=== PATIENT | male | born 1990 | race African-American/Black ===

== ENCOUNTER 2023-02-09 20:35 | Observation (INO) ==
[2023-02-09 21:27] LABS: Basophils # (auto) 0.02 K/uL (0.00-0.20); Basophils % (auto) 0.2 %; Eosinophils % (auto) 1.1 %; Hemoglobin 14.6 g/dl (14.0-18.0); Immature Granulocytes # (auto) 0.03 K/uL (0.01-0.20); Immature Granulocytes % (auto) 0.3 %; Lymphocytes # (auto) 1.47 K/uL (1.20-3.40); Lymphocytes % (auto) 15.6 %; Mean Corpuscular Hemoglobin 31.1 pg (25.0-34.0); Mean Corpuscular Hgb Conc 34.8 g/dL (32.0-36.0); Mean Corpuscular Volume 89.6 fL (80.0-100.0); Mean Platelet Volume 11.4 fL (9.4-12.4); Monocytes # (auto) 1.16 K/uL (0.11-0.59); Monocytes % (auto) 12.3 %; Neutrophils # (auto) 6.62 K/uL (1.40-6.50); Neutrophils % (auto) 70.5 %; Platelet Count 231 K/uL (130-400); RDW Coefficient of Variation 12.8 % (11.5-14.5); RDW Standard Deviation 41.9 fL (36.4-46.3); Red Blood Count 4.69 M/uL (4.70-6.10)
--- NOTE | 2023-02-09 21:38 | Emergency Department Note ---
Impression & Plan Heart palpitations, Non-ST elevation [place] (NSTEMI) ED Provider Note HISTORY OF PRESENT ILLNESS: Patient is a 33-year-old male presenting with palpitations and headache. Patient is at the [facility] when he stated he felt like he was having posterior neck pain and a headache. He was seen yesterday and had an elevated troponin at that time and signed out AGAINST MEDICAL ADVICE. He reports he has been having palpitations for the last 2 days. Denies any chest pain or sig nificant shortness of breath. He was given 324 mg of aspirin and [address] way here. Denies any history of family cardiac disease. Denies any changes in vision, numbness or tingling or weakness in his extremities ROS: as above PHYSICAL EXAM: Constitutional: Patient appears in no acute distress. HENT: Head: Normocephalic and atraumatic. Eyes: EOMI, PERRL Mouth/Throat: Mucous membranes moist. Neck: Trachea midline. Neck supple. Cardiovascular: RRR, No murmurs, rubs or gallops. Intact distal pulses. Pulmonary/Chest: No respiratory distress. Breath sounds clear and equal bilaterally. No wheezes or rales. Abdominal: Abdomen soft, no tenderness, rebound or guarding. Musculoskeletal: No edema, tenderness or deformity noted. Skin: Warm and dry. No rash, erythema, pallor or cyanosis Psychiatric: Appropriate mood and affect for situation. Neurological: Alert and keenly responsive. CN II-XII grossly intact, moving all extremities equally and fully. MDM: - Vitals signs showed hypertension - History obtained via patient. Patient presents with palpitations and headache. Patient reports has been having pain in his posterior neck and a headache for the last 48 hours. He was seen yesterday and had elevated troponins but signed out AGAINST MEDICAL ADVICE. He reports having palpitations for the last 2 days. Denies any DVT or PE history. Denies any numbness or tingling or weakness in his extremities. - Chronic conditions affecting care: None - Differential diagnoses include, but are not limited to: Acute coronary syndrome; pulmonary embolism; dissection; tension pneumothorax; esophageal rupture; pneumonia - Order placed for continuous cardiac monitoring. At this time, monitor showed rate of 75 bpm with normal sinus rhythm, per my interpretation. - External medical records reviewed. EKG from yesterday was reviewed. Patient was noted to be normal sinus rhythm with a rate of 84 bpm. He was noted to have some T wave inversions in leads I and II with some slight ST elevations in V1 and V2. Patient's EKG from today does appear to have more pronounced depres sions in leads I and II. - EKG reviewed by myself showed normal sinus rhythm. Rate 80 bpm. QTc 484. No acute ischemic changes, but the patient is noted to have more profound depressions in leads II and I. - Patient was given aspirin prehospital. - Laboratory workup interpreted by myself showed normal WBC; hypokalemia (K 3.1); elevated troponin (130.6); normal lipase; elevated dimer (610) - CXR negative for pneumonia, per my interpretation. - CT PE ordered. - Repeat troponin rising at 150. - Discussion was had with healthcare social worker about patient's case and need for admission - Hospitalist consulted for admission - Patient [facility] for further evaluation and management. ASSESSMENT AND PLAN: Diagnosis: Palpitations; NSTEMI Plan: admit Past Med/Surg History Social History Smoking Status: Unknown if ever smoked Feels Safe at Home: Yes Allergies Allergies Allergy/AdvReac Type Severity Reaction Status Date / Time No Known Allergies Allergy Unverified 02/08/23 14:50 Home Meds Home Medications Medication Instructions Recorded Confirmed No Known Home Medications 02/08/23 02/09/23 Results & Data (ED) Vital Signs Vital Signs - 24 hr 02/09/23 20:52 02/09/23 20:52 02/09/23 21:04 Temperature 37.1 C 37.1 C Temperature Source Oral Oral Pulse Rate 78 Pulse Rate [Apical] 78 Pulse Rate from SpO2 Sensor Respiratory Rate 18 18 Respiratory Effort / Characteristics Non-Labored Spontaneous Non-Labored Spontaneous Respiratory Depth Normal Normal Blood Pressure 168/108 H Blood Pressure [Right Arm] 168/108 H Blood Pressure Mean 128 Blood Pressure Mean [Right Arm] 128 Blood Pressure Position Lying Pulse Oximetry 97 97 98 Oxygen Delivery Method Room Air Room Air Room Air Sepsis Recent Fever Within 48 Hours No Sepsis New/Unexplained Change in Mental Status N/A Sepsis Action Taken by Nursing No Action Required 02/09/23 21:04 02/09/23 22:15 02/09/23 22:52 Temperature Temperature Source Pulse Rate 78 63 Pulse Rate [Apical] Pulse Rate from SpO2 Sensor Respiratory Rate 18 Respiratory Effort / Characteristics Respiratory Depth Normal Blood Pressure Blood Pressure [Right Arm] Blood Pressure Mean Blood Pressure Mean [Right Arm] Blood Pressure Position Pulse Oximetry 98 Oxygen Delivery Method Room Air Sepsis Recent Fever Within 48 Hours Sepsis New/Unexplained Change in Mental Status Sepsis Action Taken by Nursing 02/09/23 22:15 02/09/23 22:58 02/09/23 23:00 Temperature Temperature Source Pulse Rate 74 68 77 Pulse Rate [Apical] Pulse Rate from SpO2 Sensor 70 67 77 Respiratory Rate 15 10 L 16 Respiratory Effort / Characteristics Respiratory Depth Blood Pressure Blood Pressure [Right Arm] Blood Pressure Mean Blood Pressure Mean [Right Arm] Blood Pressure Position Pulse Oximetry 93 98 99 Oxygen Delivery Method Sepsis Recent Fever Within 48 Hours Sepsis New/Unexplained Change in Mental Status Sepsis Action Taken by Nursing 02/09/23 23:07 02/09/23 23:07 02/09/23 23:30 Temperature Temperature Source Pulse Rate 75 75 Pulse Rate [Apical] Pulse Rate from SpO2 Sensor 75 72 Respiratory Rate 19 14 Respiratory Effort / Characteristics Respiratory Depth Blood Pressure 171/114 H Blood Pressure [Right Arm] Blood Pressure Mean 129 Blood Pressure Mean [Right Arm] Blood Pressure Position Pulse Oximetry 98 98 Oxygen Delivery Method Sepsis Recent Fever Within 48 Hours Sepsis New/Unexplained Change in Mental Status Sepsis Action Taken by Nursing 02/09/23 23:31 02/09/23 23:31 02/10/23 00:00 Temperature Temperature Source Pulse Rate 76 75 Pulse Rate [Apical] Pulse Rate from SpO2 Sensor 79 Respiratory Rate 21 16 Respiratory Effort / Characteristics Respiratory Depth Blood Pressure 147/102 H 163/109 H Blood Pressure [Right Arm] Blood Pressure Mean 131 127 Blood Pressure Mean [Right Arm] Blood Pressure Position Pulse Oximetry 99 98 Oxygen Delivery Method Sepsis Recent Fever Within 48 Hours Sepsis New/Unexplained Change in Mental Status Sepsis Action Taken by Nursing Laboratory Data 02/09/23 20:45 02/09/23 20:45 Lab Results 02/09/23 02/09/23 02/09/23 Range/Units 20:45 20:45 20:45 WBC 9.40 (4.8-10.8) K/ul RBC 4.69 L (4.70-6.10) M/uL Hgb 14.6 (14.0-18.0) g/dl Hct 42.0 (42.0-52.0) % MCV 89.6 (80.0-100.0) fL MCH 31.1 (25.0-34.0) pg MCHC 34.8 (32.0-36.0) g/dL RDW Std Deviation 41.9 (36.4-46.3) fL RDW Coeff of Victorino 12.8 (11.5-14.5) % Plt Count 231 (130-400) K/uL MPV 11.4 (9.4-12.4) fL Immature Gran % (Auto) 0.3 % Neut % (Auto) 70.5 % Lymph % (Auto) 15.6 % Hand % (Auto) 12.3 % Eos % (Auto) 1.1 % Baso % (Auto) 0.2 % Neut # (Auto) 6.62 H (1.40-6.50) K/uL Lymph # (Auto) 1.47 (1.20-3.40) K/uL Hand # (Auto) 1.16 H (0.11-0.59) K/uL Eos # (Auto) 0.10 (0.00-0.50) K/uL Baso # (Auto) 0.02 (0.00-0.20) K/uL Immature Gran # (Auto) 0.03 (0.01-0.20) K/uL PT 10.9 (9.0-12.0) Seconds INR 1.0 (0.9-1.1) D-Dimer 610 H* (0-500) ug/L FEU Sodium 140 (136-145) mmol/L Potassium 3.1 L (3.5-5.1) mmol/L Chloride 102 (98-107) mmol/L Carbon Dioxide 31 (21-32) mmol/L Anion Gap 7 (3-11) BUN 17 (6-23) mg/dl Creatinine 1.29 (0.6-1.4) mg/dl Est Cr Clr Drug Dosing 100.5 ml/min Est GFR ( Amer) 83.3 ml/min Est GFR (Non-Af Amer) 71.9 ml/min BUN/Creatinine Ratio 13.2 (10-20) Glucose 96 (70-99(Fasting)) mg/dl Calcium 10.2 (8.6-10.3) mg/dl Total Bilirubin 0.9 (0.2-1.0) mg/dl AST 40 H (13-39) U/L ALT 25 (7-52) U/L Alkaline Phosphatase 76 (34-104) U/L Troponin I High Sens 130.6 H* (0-20) pg/ml Total Protein 8.5 H (6.0-8.3) gm/dl Albumin 4.5 (3.4-5.0) gm/dl Globulin 4.0 (2.5-4.0) gm/dl Albumin/Globulin Ratio 1.1 (0.9-2) Lipase 20 (11-82) U/L 02/09/23 Range/Units 23:14 WBC (4.8-10.8) K/ul RBC (4.70-6.10) M/uL Hgb (14.0-18.0) g/dl Hct (42.0-52.0) % MCV (80.0-100.0) fL MCH (25.0-34.0) pg MCHC (32.0-36.0) g/dL RDW Std Deviation (36.4-46.3) fL RDW Coeff of Victorino (11.5-14.5) % Plt Count (130-400) K/uL MPV (9.4-12.4) fL Immature Gran % (Auto) % Neut % (Auto) % Lymph % (Auto) % Hand % (Auto) % Eos % (Auto) % Baso % (Auto) % Neut # (Auto) (1.40-6.50) K/uL Lymph # (Auto) (1.20-3.40) K/uL Hand # (Auto) (0.11-0.59) K/uL Eos # (Auto) (0.00-0.50) K/uL Baso # (Auto) (0.00-0.20) K/uL Immature Gran # (Auto) (0.01-0.20) K/uL PT (9.0-12.0) Seconds INR (0.9-1.1) D-Dimer (0-500) ug/L FEU Sodium (136-145) mmol/L Potassium (3.5-5.1) mmol/L Chloride (98-107) mmol/L Carbon Dioxide (21-32) mmol/L Anion Gap (3-11) BUN (6-23) mg/dl Creatinine (0.6-1.4) mg/dl Est Cr Clr Drug Dosing ml/min Est GFR ( Amer) ml/min Est GFR (Non-Af Amer) ml/min BUN/Creatinine Ratio (10-20) Glucose (70-99(Fasting)) mg/dl Calcium (8.6-10.3) mg/dl Total Bilirubin (0.2-1.0) mg/dl AST (13-39) U/L ALT (7-52) U/L Alkaline Phosphatase (34-104) U/L Troponin I High Sens 150.1 H* (0-20) pg/ml Total Protein (6.0-8.3) gm/dl Albumin (3.4-5.0) gm/dl Globulin (2.5-4.0) gm/dl Albumin/Globulin Ratio (0.9-2) Lipase (11-82) U/L Administered Medications Discontinued Medications Ioversol (Optiray 320 125ml) 117 ml IV ONCE ONE Stop: 02/09/23 22:42 Last Admin: 02/09/23 22:41 Dose: 117 ml Documented By: KARIN Discharge Plan Visit Data Chief Complaint: Chest Pain Stated Complaint: CHEST PAIN, HEADACHE ED Provider: Amarilis Fraser Discharge Problem: Heart palpitations, Non-ST elevation [place] (NSTEMI) Forms Stand Alone Forms: [employer] Prescriptions Prescriptions: No Action No Known Home Medications Referrals Referrals: [facility] [Primary Care Provider] -
[2023-02-09 21:41] LABS: Albumin Globulin Ratio 1.1 (0.9-2); Albumin Level 4.5 gm/dl (3.4-5.0); BUN Creatinine Ratio 13.2 (10-20); Bilirubin,Total 0.9 mg/dl (0.2-1.0); Calcium 10.2 mg/dl (8.6-10.3); Creatinine Clr Calc Pharmacy 100.5 ml/min; Est GFR (African American) 83.3 ml/min; Est GFR (Non-African American) 71.9 ml/min; Potassium 3.1 mmol/L (3.5-5.1); Total Protein 8.5 gm/dl (6.0-8.3)
[2023-02-09 21:52] LABS: Troponin I High Sensitivity 130.6 pg/ml (0-20)
[2023-02-09 21:55] LABS: Prothrombin Time 10.9 Seconds (9.0-12.0)
[2023-02-09 22:05] LABS: D Dimer 610 ug/L FEU (0-500)
[2023-02-09] MEDS ORDERED: OPTIRAY 320 125ml IV ONE (22:41)
--- NOTE | 2023-02-10 00:14 | CT Scan Report ---
Exam(s): CTA CHEST IV Amt: 117 ml optiray 350 EXAM: CT Angiography Chest With Intravenous Contrast CLINICAL HISTORY: Reason for exam: PE. TECHNIQUE: Axial computed tomographic angiography images of the chest with intravenous contrast. CTDI is 27.39 mGy and DLP is 939.32 mGy-cm. Automated exposure control was utilized for the study. A dose lowering technique was utilized adhering to the principles of ALARA. MIP reconstructed images were created and reviewed. COMPARISON: No relevant prior studies available. FINDINGS: Pulmonary arteries: Unremarkable. No pulmonary embolism. Aorta: No acute findings. No thoracic aortic aneurysm. Lungs: Mild to moderate peribronchial thickening of the central and peripheral bronchi. No mass. No consolidation. Pleural space: Unremarkable. No significant effusion. No pneumothorax. Heart: There is thickening of the left ventricular myocardium. No cardiomegaly. No significant pericardial effusion. Mild RV dysfunction. Bones/joints: No acute fracture. No dislocation. Soft tissues: Unremarkable. Lymph nodes: Prominent mediastinal lymph nodes. Prominent axillary lymph nodes. IMPRESSION: No evidence of pulmonary emboli. Findings concerning bronchitis, which may be of infectious or inflammatory etiology is. No consolidation. Electronically signed by: Dionne Harrison MD 02/10/23 00:12 AM
--- NOTE | 2023-02-10 00:51 | History & Physical Report ---
Date of Service February 10, 2023 Assessment & Plan (1) Elevated troponin: Plan: 33-year-old male with no significant past medical history presents from [facility] with palpitations and a headache and found to have elevated troponin. Elevated troponin Mostly plateaued from yesterday EKG shows possible LVH and has some mild T wave inversions lateral leads Patient asymptomatic We will follow serial cardiac enzymes if increasing will start on IV heparin Received aspirin We will follow echo Monitoring telemetry drug screen done yesterday negative Cardiac consult in a.m. LVH Possible hypertrophic cardiomyopathy on CT chest yesterday CTA chest today no PE, no enlarged heart, possible mild RV dysfunction We will follow echo Cardiology consulted Headaches CT head was okay yesterday We will follow repeat CT head today Pain control Hypertension Questionable situational Possibly uncontrolled We will place on IV labetalol as needed for now and monitor DVT prophylaxis Lovenox Disposition telemetry floor Full code History of Present Illness Chief Complaint: Palpitations and headache Primary Care Provider: [facility] 33-year-old male with no significant past medical history presents from [facility] with palpitations and a headache. Patient was in the ER yesterday for medical clearance by [employer] police. Apparently he was pulled over for traffic stop and patient fled on foot. Seems he was tased by [employer] 4 times. Apparently was running through bushes and [place]. He had multiple superficial abrasions on extremities and on the face. Multiple CAT scans were done and there were no traumatic findings but CT chest showed enlarged heart and also concentric hypertrophy of left ventricle concerning for hypertrophic cardiomyopathy. Also his troponin was elevated but he denied any chest pains. EKG was thought to be nonischemic. ER wanted to admit the patient but patient signed out AMA and was taken to [facility]. Today in the [facility] he was having a lot of headaches and palpitations and he was brought back. His palpitations improved. Still has headache. Complains of some photophobia. Denies any chest pains. Says occasional shortness of breath. No cough. No fevers. No runny nose or sore throat. No nausea. No abdominal pain. Past medical history none as per patient Past surgical history none as per patient Social history denies smoking. 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 Lungs- clear to auscultation , no wheezing or crackles. Heart- regular rate and rhythm; no murmur, no gallop. Abdomen- normal bowel sounds, soft, nontender, no distension. Extremities- no pretibial edema, no erythema seen. Neuro- alert, oriented x 3; PERRL, EOMI; no facial palsy; no dysarthria; obeys commands, moves extremities. Skin- superficial abrasions seen on face and extremities Results & Data Results & Data Vital Signs (Past 12 Hours) Vital Signs Temp Pulse Pulse Resp BP BP Pulse Ox 02/10/23 00:00 75 16 163/109 H 98 02/09/23 23:31 76 21 99 02/09/23 23:31 147/102 H 02/09/23 23:30 75 14 98 02/09/23 23:07 171/114 H 02/09/23 23:07 75 19 98 02/09/23 23:00 77 16 99 02/09/23 22:58 68 10 L 98 02/09/23 22:15 74 15 93 02/09/23 22:15 63 02/09/23 21:04 78 18 98 02/09/23 21:04 98 02/09/23 20:52 37.1 C 78 18 168/108 H 97 02/09/23 20:52 37.1 C 78 18 168/108 H 97 O2 Del Method 02/10/23 00:00 02/09/23 23:31 02/09/23 23:31 02/09/23 23:30 02/09/23 23:07 02/09/23 23:07 02/09/23 23:00 02/09/23 22:58 02/09/23 22:15 02/09/23 22:15 02/09/23 21:04 Room Air 02/09/23 21:04 Room Air 02/09/23 20:52 Room Air 02/09/23 20:52 Room Air Diagnostic Findings Laboratory Results WBC 9.40 K/ul (4.8-10.8) 02/09/23 20:45 RBC 4.69 M/uL (4.70-6.10) L 02/09/23 20:45 Hgb 14.6 g/dl (14.0-18.0) 02/09/23 20:45 Hct 42.0 % (42.0-52.0) 02/09/23 20:45 MCV 89.6 fL (80.0-100.0) 02/09/23 20:45 MCH 31.1 pg (25.0-34.0) 02/09/23 20:45 MCHC 34.8 g/dL (32.0-36.0) 02/09/23 20:45 RDW Std Deviation 41.9 fL (36.4-46.3) 02/09/23 20:45 RDW Coeff of Victorino 12.8 % (11.5-14.5) 02/09/23 20:45 Plt Count 231 K/uL (130-400) 02/09/23 20:45 MPV 11.4 fL (9.4-12.4) 02/09/23 20:45 Immature Gran % (Auto) 0.3 % 02/09/23 20:45 Neut % (Auto) 70.5 % 02/09/23 20:45 Lymph % (Auto) 15.6 % 02/09/23 20:45 [place] % (Auto) 12.3 % 02/09/23 20:45 Eos % (Auto) 1.1 % 02/09/23 20:45 Baso % (Auto) 0.2 % 02/09/23 20:45 Neut # (Auto) 6.62 K/uL (1.40-6.50) H 02/09/23 20:45 Lymph # (Auto) 1.47 K/uL (1.20-3.40) 02/09/23 20:45 [place] # (Auto) 1.16 K/uL (0.11-0.59) H 02/09/23 20:45 Eos # (Auto) 0.10 K/uL (0.00-0.50) 02/09/23 20:45 Baso # (Auto) 0.02 K/uL (0.00-0.20) 02/09/23 20:45 Immature Gran # (Auto) 0.03 K/uL (0.01-0.20) 02/09/23 20:45 PT 10.9 Seconds (9.0-12.0) 02/09/23 20:45 INR 1.0 (0.9-1.1) 02/09/23 20:45 D-Dimer 610 ug/L FEU (0-500) H* 02/09/23 20:45 Sodium 140 mmol/L (136-145) 02/09/23 20:45 Potassium 3.1 mmol/L (3.5-5.1) L 02/09/23 20:45 Chloride 102 mmol/L (98-107) 02/09/23 20:45 Carbon Dioxide 31 mmol/L (21-32) 02/09/23 20:45 Anion Gap 7 (3-11) 02/09/23 20:45 BUN 17 mg/dl (6-23) 02/09/23 20:45 Creatinine 1.29 mg/dl (0.6-1.4) 02/09/23 20:45 Est Cr Clr Drug Dosing 100.5 ml/min 02/09/23 20:45 Est GFR ( Amer) 83.3 ml/min 02/09/23 20:45 Est GFR (Non-Af Amer) 71.9 ml/min 02/09/23 20:45 BUN/Creatinine Ratio 13.2 (10-20) 02/09/23 20:45 Glucose 96 mg/dl (70-99(Fasting)) 02/09/23 20:45 Calcium 10.2 mg/dl (8.6-10.3) 02/09/23 20:45 Total Bilirubin 0.9 mg/dl (0.2-1.0) 02/09/23 20:45 AST 40 U/L (13-39) H 02/09/23 20:45 ALT 25 U/L (7-52) 09/15/23 20:45 Alkaline Phosphatase 76 U/L (34-104) 02/09/23 20:45 Troponin I High Sens 150.1 pg/ml (0-20) H* 02/09/23 23:14 Total Protein 8.5 gm/dl (6.0-8.3) H 02/09/23 20:45 Albumin 4.5 gm/dl (3.4-5.0) 02/09/23 20:45 Globulin 4.0 gm/dl (2.5-4.0) 02/09/23 20:45 Albumin/Globulin Ratio 1.1 (0.9-2) 02/09/23 20:45 Lipase 20 U/L (11-82) 02/09/23 20:45 SARS-CoV-2 (PCR) NEGATIVE (Negative) 02/09/23 23:52 Impressions Chest CTA 02/09/23 22:06 Exam(s): CTA CHEST IV Amt: 117 ml optiray 350 EXAM: CT Angiography Chest With Intravenous Contrast CLINICAL HISTORY: Reason for exam: PE. TECHNIQUE: Axial computed tomographic angiography images of the chest with intravenous contrast. CTDI is 27.39 mGy and DLP is 939.32 mGy-cm. Automated exposure control was utilized for the study. A dose lowering technique was utilized adhering to the principles of ALARA. MIP reconstructed images were created and reviewed. COMPARISON: No relevant prior studies available. FINDINGS: Pulmonary arteries: Unremarkable. No pulmonary embolism. Aorta: No acute findings. No thoracic aortic aneurysm. Lungs: Mild to moderate peribronchial thickening of the central and peripheral bronchi. No mass. No consolidation. Pleural space: Unremarkable. No significant effusion. No pneumothorax. Heart: There is thickening of the left ventricular myocardium. No cardiomegaly. No significant pericardial effusion. Mild RV dysfunction. Bones/joints: No acute fracture. No dislocation. Soft tissues: Unremarkable. Lymph nodes: Prominent mediastinal lymph nodes. Prominent axillary lymph nodes. IMPRESSION: No evidence of pulmonary emboli. Findings concerning bronchitis, which may be of infectious or inflammatory etiology is. No consolidation. Electronically signed by: Dionne Harrison MD 02/10/23 00:12 AM ECG Additional Comments: ECG normal sinus rhythm rate of 88. Possible left atrial enlargement. LVH. ST depressions in lateral leads Code Status & VTE Plan VTE Prophylaxis Plan VTE Prophylaxis will be ordered: Yes
[2023-02-10] MEDS ORDERED: LABETALOL HCL IV 5 MG/ML 20ML IV PRN (01:35)
[2023-02-10] MEDS ORDERED: NITROGLYCERIN SL 0.4 MG/TAB TAB SL PRN (01:35)
[2023-02-10] MEDS ORDERED: ACETAMINOPHEN 325 MG TAB PO PRN (01:35)
[2023-02-10 05:56] LABS: Basophils # (auto) 0.04 K/uL (0.00-0.20); Basophils % (auto) 0.5 %; Eosinophils % (auto) 2.3 %; Hematocrit (blood only) 39.9 % (42.0-52.0); Hemoglobin 14.4 g/dl (14.0-18.0); Immature Granulocytes # (auto) 0.03 K/uL (0.01-0.20); Immature Granulocytes % (auto) 0.3 %; Lymphocytes # (auto) 1.71 K/uL (1.20-3.40); Lymphocytes % (auto) 19.3 %; Mean Corpuscular Hemoglobin 31.5 pg (25.0-34.0); Mean Corpuscular Hgb Conc 36.1 g/dL (32.0-36.0); Mean Corpuscular Volume 87.3 fL (80.0-100.0); Mean Platelet Volume 11.1 fL (9.4-12.4); Monocytes # (auto) 0.97 K/uL (0.11-0.59); Monocytes % (auto) 10.9 %; Neutrophils # (auto) 5.92 K/uL (1.40-6.50); Neutrophils % (auto) 66.7 %; Platelet Count 209 K/uL (130-400); RDW Coefficient of Variation 12.4 % (11.5-14.5); RDW Standard Deviation 39.5 fL (36.4-46.3); Red Blood Count 4.57 M/uL (4.70-6.10); White Blood Count 8.87 K/ul (4.8-10.8)
[2023-02-10 06:05] LABS: BUN Creatinine Ratio 13.1 (10-20); Calcium 9.4 mg/dl (8.6-10.3); Chol HDL Ratio 2.6 (0-5); Creatinine Clr Calc Pharmacy 105.7 ml/min; Est GFR (African American) 89.1 ml/min; Est GFR (Non-African American) 76.9 ml/min; Magnesium 1.8 mg/dl (1.7-2.4)
[2023-02-10 06:23] LABS: Troponin I High Sensitivity 137.4 pg/ml (0-20)
--- NOTE | 2023-02-10 07:31 | XRay Report ---
XR chest 1V portable HISTORY: 33 years-old Male Chest pain, nonspecific COMPARISON: CTA chest of same day TECHNIQUE: AP view of the chest FINDINGS: Cardiac silhouette is upper limits of normal in size. There is no pneumothorax, pleural effusion, air space consolidation or pulmonary edema. The bones appear to be grossly intact. IMPRESSION: No acute process. ACT 112: Negative or not required by law. The above report was generated using voice recognition software. It may contain grammatical, syntax o r spelling errors. Electronically signed by: Bob Millard M.D. 02/10/2023 7:30 AM
[2023-02-10] MEDS ORDERED: POTASSIUM CHLORIDE CRTAB 20 MEQ TABCR PO STA (08:05)
[2023-02-10] MEDS: ENOXAPARIN INJ 40 MG/0.4 ML SYR SQ SCH ×2 (08:25→08:28)
--- NOTE | 2023-02-10 09:36 | Electrocardiogram Report ---
Test Reason : Blood Pressure : / mmHG Vent. Rate : 080 BPM Atrial Rate : 080 BPM P-R Int : 186 ms QRS Dur : 106 ms QT Int : 420 ms P-R-T Axes : 053 073 239 degrees QTc Int : 484 ms Normal sinus rhythm Left atrial enlargement Left ventricular hypertrophy with repolarization abnormality Abnormal ECG When compared with ECG of 08-FEB-2023 13:08, No significant change Confirmed by Raheem Mon ([id number]) on 02/10/2023 9:36:03 AM Referred By: [facility] Confirmed By:Raheem Mon
[2023-02-10] MEDS ORDERED: LOSARTAN POTASSIUM 50 MG TAB PO SCH (10:30)
[2023-02-10] MEDS ORDERED: amLODIPine BESYLATE 5 MG TAB PO SCH (10:30)
--- NOTE | 2023-02-10 10:38 | CT Scan Report ---
CT head/brain wo con CLINICAL HISTORY: 33 years-old Male with severe headache, photophobia. Acute headache TECHNIQUE: Multiple axial CT images of the head were obtained without contrast. A dose lowering tech nique was utilized adhering to the principles of ALARA. CT DOSE: 625.80 mGy.cm COMPARISON: 02/08/2023 FINDINGS: No acute intracranial hemorrhage, midline shift, intracranial mass, hydrocephalus, territorial ischem ia or abnormal extra-axial collection. The calvarium is intact. Mild mucosal thickening of the maxillary sinuses. The mastoid air cells are clear. Unremarkable soft tissues and orbits. IMPRESSION: No acute intracranial abnormality. ACT 112: Negative or not required by law. The above report was generated using voice recognition software. It may contain grammatical, syntax o r spelling errors. Electronically signed by: Bob Millard M.D. 02/10/2023 10:37 AM
--- NOTE | 2023-02-10 11:32 | Electrocardiogram Report ---
Test Reason : Blood Pressure : / mmHG Vent. Rate : 063 BPM Atrial Rate : 063 BPM P-R Int : 210 ms QRS Dur : 110 ms QT Int : 474 ms P-R-T Axes : 060 069 231 degrees QTc Int : 485 ms Sinus rhythm with 1st degree A-V block Left ventricular hypertrophy with repolarization abnormality Prolonged QT Abnormal ECG When compared with ECG of 09-FEB-2023 20:42, No significant change Confirmed by Raheem Mon ([id number]) on 02/10/2023 11:32:32 AM Referred By: [facility] Confirmed By:Raheem Mon
--- NOTE | 2023-02-10 11:35 | Electrocardiogram Report ---
Test Reason : Blood Pressure : / mmHG Vent. Rate : 072 BPM Atrial Rate : 072 BPM P-R Int : 214 ms QRS Dur : 106 ms QT Int : 444 ms P-R-T Axes : 056 063 226 degrees QTc Int : 486 ms Sinus rhythm with 1st degree A-V block Left ventricular hypertrophy with repolarization abnormality Prolonged QT Abnormal ECG When compared with ECG of 10-FEB-2023 06:08, No significant change was found Confirmed by Raheem Mon ([id number]) on 02/10/2023 11:35:02 AM Referred By: [facility] Confirmed By:Raheem Mon
[2023-02-10 11:41] LABS: Troponin I High Sensitivity 92.3 pg/ml (0-20)
--- NOTE | 2023-02-10 12:21 | Cardiology Consultation ---
Date of Consultation February 10, 2023 Assessment & Plan (1) Hypertensive urgency: (2) Left ventricular hypertrophy: (3) Heart palpitations: (4) Elevated troponin: Plan Is a 33-year-old without prior history of hypertension or cardiac disease admitted with palpitations and severe hypertension EKG consistent with left ventricular hypertrophy Echocardiogram with severe left hypertrophy and preserved LV systolic function Laboratory studies on presentation spontaneous hypokalemia Recommendations: Treat hypertension degree of hypertension warrants 2 drug regimen Given marked first-degree AV block slow heart rate would avoid beta-blockers initial Renal artery duplex and renal ultrasound Plasma renin activity given with spontaneous hypokalemia with considerations for primary hyperaldosteronism Given severe left ventricular hypertrophy on echo, iron studies and serum immunoelectrophoresis ordered History of Present Illness Reason for Consultation: Hypertensive urgency Requesting Physician: Dr. Fuentes Attending Physician: Jay Fuentes MD History of Present Illness 33-year-old male [facility] without prior history of cardiac disease, hypertension per patient Brought to the ER after altercation with police Returns with symptoms of palpitation and headache with marked hypertension noted on presentation. EKG consistent with left ventricualar hypertrophy Troponins mildly elevated trending down Echocardiogram on preliminary review severe left hypertrophy with normal LV systolic function Patient denies prior history of myocardial infarction angina TIA or stroke. No history of hypertension. No history of renal or hepatic disease no history of TIA or stroke Appetite and weight are generally stable vigorously active exercising, weightlifting. No stimulants supplements. Denies street drugs and vitamins cocaine Non-smoker No family history of structural heart disease or sudden grandparent 70s or 80s, enlarged heart Allergies Allergy/AdvReac Type Severity Reaction Status Date / Time No Known Allergies Allergy Unverified 02/08/23 14:50 Home Medications Medication Instructions Recorded Confirmed Type No Known Home Medications 02/08/23 02/09/23 History amlodipine 5 mg tablet (Norvasc) 5 mg PO QAM #30 tabs 02/10/23 Rx losartan 50 mg tablet 100 mg PO QAM #30 tabs 02/10/23 Rx Patient History Social History Smoking Status: Never smoker Hx Alcohol Use: No (Denies) Hx Substance Use: No (Denies) Preferred Language: Mohawk Communication Ability: Effective 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 Beliefs That Will Affect Care: None Current Living Situation: Alone Feels Safe at Home: Yes Review of Systems Review of Systems: All systems reviewed & are unremarkable except as noted in HPI & below Physical Exam Constitutional: WD/WN, vitals as above Eyes: PERRL, conjunctivae normal, anicteric sclerae ENMT: external ear and nose normal, oropharynx normal Neck: trachea midline, no thyromegaly Respiratory: normal respiratory effort, lungs clear to auscultation Cardiovascular: RRR, no murmur, no edema Vessels: normal carotid upstroke and femoral pulses present; no JVD, no femoral bruit and no renal bruit Extremities: no pedal edema Chest (Breasts): normal inspection/palpation of breasts Gastrointestinal (Abdomen): normal bowel sounds, soft, nontender, no hepatosplenomegaly Musculoskeletal: no cyanosis or clubbing, extremities motor strength 5/5 Skin: no rashes, warm and dry Neurologic: PERRL, EOMI, accommodation nl, no face palsy, no dysarthria Psychiatric: A+Ox3, euthymic affect Results & Data Vital Signs (Past 12 Hours) Vital Signs Temp Pulse Pulse Resp BP BP Pulse Ox 02/10/23 11:54 36.7 C 78 17 177/114 H 99 02/10/23 09:00 61 02/10/23 07:39 36.7 C 60 17 169/97 H 98 02/10/23 04:02 36.5 C 59 L 19 163/98 H 98 02/10/23 02:15 37.0 C 60 18 97 02/10/23 01:55 71 02/10/23 01:39 62 16 98 02/10/23 01:36 37.0 C 63 16 168/110 H 99 O2 Del Method 02/10/23 11:54 Room Air 02/10/23 09:00 02/10/23 07:39 Room Air 02/10/23 04:02 Room Air 02/10/23 02:15 Room Air 02/10/23 01:55 02/10/23 01:39 Room Air 02/10/23 01:36 Room Air Laboratory Results Laboratory Results - last 24 hr 02/09/23 02/09/23 02/09/23 20:45 20:45 20:45 WBC 9.40 RBC 4.69 L Hgb 14.6 Hct 42.0 MCV 89.6 MCH 31.1 MCHC 34.8 RDW Std Deviation 41.9 RDW Coeff of Victorino 12.8 Plt Count 231 MPV 11.4 Immature Gran % (Auto) 0.3 Neut % (Auto) 70.5 Lymph % (Auto) 15.6 [place] % (Auto) 12.3 Eos % (Auto) 1.1 Baso % (Auto) 0.2 Neut # (Auto) 6.62 H Lymph # (Auto) 1.47 [place] # (Auto) 1.16 H Eos # (Auto) 0.10 Baso # (Auto) 0.02 Immature Gran # (Auto) 0.03 PT 10.9 INR 1.0 D-Dimer 610 H* Sodium 140 Potassium 3.1 L Chloride 102 Carbon Dioxide 31 Anion Gap 7 BUN 17 Creatinine 1.29 Est Cr Clr Drug Dosing 100.5 Est GFR ( Amer) 83.3 Est GFR (Non-Af Amer) 71.9 BUN/Creatinine Ratio 13.2 Glucose 96 Calcium 10.2 Magnesium Total Bilirubin 0.9 AST 40 H ALT 25 Alkaline Phosphatase 76 Troponin I High Sens 130.6 H* Total Protein 8.5 H Albumin 4.5 Globulin 4.0 Albumin/Globulin Ratio 1.1 Triglycerides Cholesterol LDL Cholesterol, Calc VLDL Cholesterol, Calc HDL Cholesterol Cholesterol/HDL Ratio Lipase 20 SARS-CoV-2 (PCR) 02/09/23 02/09/23 02/10/23 23:14 23:52 05:23 WBC RBC Hgb Hct MCV MCH MCHC RDW Std Deviation RDW Coeff of Victorino Plt Count MPV Immature Gran % (Auto) Neut % (Auto) Lymph % (Auto) [place] % (Auto) Eos % (Auto) Baso % (Auto) Neut # (Auto) Lymph # (Auto) [place] # (Auto) Eos # (Auto) Baso # (Auto) Immature Gran # (Auto) PT INR D-Dimer Sodium 138 Potassium 3.0 L Chloride 105 Carbon Dioxide 29 Anion Gap 4 BUN 16 Creatinine 1.22 Est Cr Clr Drug Dosing 105.7 Est GFR ( Amer) 89.1 Est GFR (Non-Af Amer) 76.9 BUN/Creatinine Ratio 13.1 Glucose 97 Calcium 9.4 Magnesium 1.8 Total Bilirubin AST ALT Alkaline Phosphatase Troponin I High Sens 150.1 H* 137.4 H* Total Protein Albumin Globulin Albumin/Globulin Ratio Triglycerides 90 Cholesterol 171 LDL Cholesterol, Calc 87 VLDL Cholesterol, Calc 18 HDL Cholesterol 66 Cholesterol/HDL Ratio 2.6 Lipase SARS-CoV-2 (PCR) NEGATIVE 02/10/23 02/10/23 05:23 10:54 WBC 8.87 RBC 4.57 L Hgb 14.4 Hct 39.9 L MCV 87.3 MCH 31.5 MCHC 36.1 H RDW Std Deviation 39.5 RDW Coeff of Victorino 12.4 Plt Count 209 MPV 11.1 Immature Gran % (Auto) 0.3 Neut % (Auto) 66.7 Lymph % (Auto) 19.3 [place] % (Auto) 10.9 Eos % (Auto) 2.3 Baso % (Auto) 0.5 Neut # (Auto) 5.92 Lymph # (Auto) 1.71 [place] # (Auto) 0.97 H Eos # (Auto) 0.20 Baso # (Auto) 0.04 Immature Gran # (Auto) 0.03 PT INR D-Dimer Sodium Potassium Chloride Carbon Dioxide Anion Gap BUN Creatinine Est Cr Clr Drug Dosing Est GFR ( Amer) Est GFR (Non-Af Amer) BUN/Creatinine Ratio Glucose Calcium Magnesium Total Bilirubin AST ALT Alkaline Phosphatase Troponin I High Sens 92.3 H* D Total Protein Albumin Globulin Albumin/Globulin Ratio Triglycerides Cholesterol LDL Cholesterol, Calc VLDL Cholesterol, Calc HDL Cholesterol Cholesterol/HDL Ratio Lipase SARS-CoV-2 (PCR)
--- NOTE | 2023-02-10 13:01 | Discharge Summary ---
Date of Service February 10, 2023 Admission HPI Per Admitting Provider 33-year-old male with no significant past medical history presents from assisted with palpitations and a headache. Patient was in the ER yesterday for medical clearance by [place] police. Apparently he was pulled over for traffic stop and patient fled on foot. Seems he was tased by [place] troopers 4 times. Apparently was running through bushes and [place]. He had multiple superficial abrasions on extremities and on the face. Multiple CAT scans were done and there were no traumatic findings but CT chest showed enlarged heart and also concentric hypertrophy of left ventricle concerning for hypertrophic cardiomyopathy. Also his troponin was elevated but he denied any chest pains. EKG was thought to be nonischemic. ER wanted to admit the patient but patient signed out AMA and was taken to assisted. Today in the assisted he was having a lot of headaches and palpitations and he was brought back. His palpitations improved. Still has headache. Complains of some photophobia. Denies any chest pains. Says occasional shortness of breath. No cough. No fevers. No runny nose or sore throat. No nausea. No abdominal pain. Past medical history none as per patient Past surgical history none as per patient Social history denies smoking. Denies any drugs Family history says his grandfather has enlarged heart Admission Exam Per Admitting Provider General- Not in distress Head- superficial abrasions seen o the face Eyes- PERRL, ENT- oropharynx clear Neck- supple, no JVD,. Lungs- clear to auscultation , no wheezing or crackles. Heart- regular rate and rhythm; no murmur, no gallop. Abdomen- normal bowel sounds, soft, nontender, no distension. Extremities- no pretibial edema, no erythema seen. Neuro- alert, oriented x 3; PERRL, EOMI; no facial palsy; no dysarthria; obeys commands, moves extremities. Skin- superficial abrasions seen on face and extremities Principal Diagnosis Hypertensive heart disease Elevated high sensitive troponin secondary to demand ischemia Discharge Exam Constitutional: WD/WN, vitals as above, NAD, sitting up in bed, pleasant, conversing easily Respiratory: normal respiratory effort, lungs clear to auscultation, no wheeze, rales, rhonchi. Normal insp/exp effort, no accessory muscle use Cardiovascular: RRR, no murmur, no edema Vessels: no JVD or carotid bruit Chest: normal inspection of chest Abdomen: normal bowel sounds, soft, nontender, no hepatosplenomegaly Musculoskeletal: no cyanosis or clubbing, extremities motor strength 5/5 Skin: no rashes, warm and dry normal turgor Neurologic: PERRL, EOMI, accommodation nl, no face palsy, no dysarthria CN's II- XI intact bilaterally and moves all extremities Psychiatric: A+Ox3, euthymic affect Discharge Data Allergies Allergy/AdvReac Type Severity Reaction Status Date / Time No Known Allergies Allergy Unverified 02/08/23 14:50 Consultations 02/09/23 23:46 ED Decision to Admit Stat 02/10/23 08:00 Consult Cardiology Routine Ordered Studies 02/09/23 22:06 CT for pulmonary embolism PE [CT angio chest PE protocol] Stat 02/10/23 00:52 CT head/brain wo con Urgent 02/10/23 12:42 US Renal Bladder [US renal/blad retro comp] Urgent US duplex renal artery Urgent Hospital Course (1) Elevated troponin: 33-year-old male with no significant past medical history presents from assisted with palpitations and a headache and found to have elevated troponin. EKG on admission showed sinus rhythm with first-degree AV block. Also found to have left ventricular hypertrophy with repolarization. High sensitive troponin was 130; down trended to 92 CT head was done which did not show any acute findings. Patient had severe hypertension. His EKG is suggestive of hypertrophic heart disease as well. He was recommended to stay in the hospital to undergo further testing for secondary hypertension. US renal artery Doppler was ordered to rule out renal artery stenosis. However, patient did not want to do any further tests. Discussion was done regarding risks of myocardial infarction, sudden cardiac and multi organ damage. He is alert oriented x3; he understood the risks and decided to go AGAINST MEDICAL ADVICE. He was prescribed amlodipine and losartan. Please note the above document was generated using voice recognition software. It may contain grammatical, syntax or spelling errors. Any formal questions or c oncerns about the content, text or information contained within the body of this dictation should be directly addressed to the provider for clarification Total Time Total Time Spent Total Time Spent (In Minutes): 45 Total Time Includes: Examination of the Patient, Discharge Planning, Medication Reconciliation, Communication With Other Providers and Other Discharge Plan Discharge Items Patient Disposition: Against Medical Advice Reason For Visit: PALPITATIONS, ELEVATED TROPONIN Activity: Resume your previous activity Non-emergency contact: Primary Care Provider Follow-up/Referrals: [facility] [Primary Care Provider] - Dangelo Lead Loader Provider Instructions: You were admitted to the hospital due to headache and high blood pressure. CT head did not show any intracranial findings. For high blood pressure, you are prescribed losartan and amlodipine. Please take this medication and measure blood pressure daily Pending Studies at Discharge: No Stand-Alone Forms: My [facility] [employer], Smoking Cessation Medications and DC Order Prescriptions: New losartan 50 mg Tablet 100 mg PO QAM Qty: 30 0RF amlodipine [Norvasc] 5 mg Tablet 5 mg PO QAM Qty: 30 0RF No Action No Known Home Medications Discharge Orders: Left Against Medical Advice (Routine); Ordered 02/10/23 Ordered By: Jay Fuentes Admission Data Admit Date/Time: 02/10/23 00:43 Attending Provider: Jay Fuentes Admit Provider: Leonidas Phelps Primary Care Provider: [facility] Other Providers: Leonidas Phelps ; Edgar Lamar
[2023-02-10 14:07] LABS: Ferritin 115.5 ng/ml (8-388)
== END 2023-02-10 13:56 | disposition left against medical advice (07) | DRG 292 ==
LOC: ED 20:35 → INTOOBSV 02-10 00:43 → 2E 02-10 00:43